=== PATIENT | female | born 1970 | race African-American/Black ===

== ENCOUNTER 2018-09-24 07:00 | Emergency (ER) | payer OTHER ==
[2018-09-24 07:08] VITALS: BP 168/120
[2018-09-24] MEDS ORDERED: FUROSEMIDE 20 MG TABLET PO STA (07:29)
--- NOTE | 2018-09-24 07:30 | ED Physician Documentation ---
History of Present Illness - Stated complaint Stated Complaint: ANKLES SWELLING - Chief complaint Chief Complaint: General - History obtained from History obtained from: Patient - History of Present Illness Timing: How many weeks ago (2-3) Pain level max: 0 Pain level now: 0 Improved by: Elevating her legs Worsened by: Standing - Additonal information Additional information: 48-year-old female presents to the emergency department bilateral lower extremity swelling. Noticed for the past 2 to 3 weeks. She has not taken her blood pressure medications today. She is currently on lisinopril, amlodipine and hydrochlorothiazide. She states that she has been eating beef jerky recently. No chest pain. No difficulty breathing. Tried to see the clinic this morning but they are closed for renovation and she was directed here. Review of Systems Constitutional: denies: Fever, Chills Throat: denies: Sore throat Cardiac: denies: Chest pain / pressure Respiratory: denies: Cough GI: denies: Vomiting Skin: denies: Rash Musculoskeletal: denies: Neck pain, Back pain Neurologic: denies: Headache PD PAST MEDICAL HISTORY - Past Medical History Past Medical History: Yes Cardiovascular: Hypertension - Present Medications Home Medications: Ambulatory Orders Medication Instructions Recorded Confirmed Hydrochlorothiazide 25 mg PO DAILY 09/24/18 09/24/18 Lisinopril 40 mg PO DAILY 09/24/18 09/24/18 amLODIPine [Norvasc] 10 mg PO DAILY 09/24/18 09/24/18 - Allergies Allergies/Adverse Reactions: Allergies Allergy/AdvReac Type Severity Reaction Status Date / Time No Known Drug Allergies Allergy Verified 09/24/18 07:08 - Living Situation Living Arrangement: reports: At home - Social History Does the pt have substance abuse?: No - Family History Family history: reports: Non contributory PD ED PE NORMAL - Vitals Vital signs reviewed: Yes - General General: Alert and oriented X 3, No acute distress, Well developed/nourished - HEENT HEENT: PERRL, Moist mucous membranes - Neck Neck: Supple, no meningeal sign - Cardiac Cardiac: RRR - Respiratory Respiratory: No respiratory distress, Clear bilaterally - Abdomen Abdomen: Soft, Non tender, Non distended - Derm Derm: Warm and dry - Extremities Extremities: No calf tenderness / cord, Other (1+ non-pitting edema) - Neuro Neuro: Alert and oriented X 3 - Psych Psych: Normal mood, Normal affect Results - Vitals Vitals: Vital Signs - 24 hr 09/24/18 07:03 Temperature 36.7 C Heart Rate 69 Respiratory 16 Rate Blood Pressure 168/120 H O2 Saturation 100 Oxygen O2 Source Room air PD MEDICAL DECISION MAKING - ED course Complexity details: considered differential, d/w patient ED course: 48-year-old female with bilateral peripheral edema. Given a dose of Lasix here. No evidence of heart failure. She has had increased salt intake recently. Recommend compression stockings and decrease her salt intake. Also increase her water intake. Patient counseled regarding signs and symptoms for which I believe and urgent re-evaluation would be necessary. Patient with good understanding of and agreement to plan and is comfortable going home at this time This document was made in part using voice recognition software. While efforts are made to proofread this document, sound alike and grammatical errors may occur. Departure - Departure Disposition: 01 Home, Self Care Clinical Impression: Peripheral edema Condition: Good Instructions: ED Edema Legs Bilateral Follow-Up: your,doctor in 1 week [Other] Comments: Elevate your legs when possible, you can use compression socks as well. Decrease your salt intake as well. Return if you worsen Discharge Date/Time: 09/24/18 07:50
== END 2018-09-24 07:50 | disposition home or self-care (01) ==
LOC: ED 07:00
DX: R60.0 Localized edema (principal); I10 Essential (primary) hypertension
CPT/HCPCS: 99282; 99284; A9270